=== PATIENT | female | born 1955 | race Two or more races ===

== ENCOUNTER 2016-07-05 17:05 | Emergency (ER) | payer SELFPAY ==
--- NOTE | 2016-07-09 19:08 | ER ---
ADMIT: 07/05/2016 RM/LOC: ER [facility] MR#: [id number] [facility] [address] [place], [place] [id number] PAUL MARLEY Giancarlo [address] [place] [id number] Emergency Room Report SEX: F AGE: 61 : 1955 DATE: 07/05/2016 CHIEF COMPLAINT: Shortness of breath. HISTORY OF PRESENT ILLNESS: This is a 61-year-old, female, who presents with 7 days' duration of shortness of breath. She states this started out as an upper respiratory infection with some sore throat, sinus drainage. This has progressed into some body aches and sinus drainage. Admits to some fever, chills, chest pain, productive cough, dizziness, lightheadedness, nausea, vomiting, muscle aches, swollen glands, and headache. She was recently treated for bronchitis with antibiotics and prednisone. She has been seen a few times at Urgent Care, but currently treated for bronchitis. She does have a past history of cardiac disease, status post three cardiac stents. She has had a stroke in the past as well as hypertension. She is currently not taking any medications as she is not set up with a primary care provider at this point. She has no known drug allergies. She does smoke 1/4 pack per day; however, states she has not had a cigarette in 6 days now. COURSE IN THE EMERGENCY ROOM: The patient was seen and examined. She is in mild amount of distress. She is anxious. She is in no respiratory distress. She does have some wheezes bilaterally, some faint rhonchi in the right lung base greater than the left. No accessory muscle use. No decreased air movement. Heart rate is regular. No murmur, JVD, gallop, or chip. Abdomen is soft and nontender. No distention. Skin is warm and dry. She does have trace pedal edema. She is oriented, able to ambulate today. I did get some labs on her. Her white count is 6.4, hemoglobin 16.1, hematocrit 45.8, platelets 139. Chemistry is normal. Cardiac enzymes were negative. EKG; normal sinus rhythm without ST-T or Q wave abnormalities. Chest x-ray negative for any infiltrates or acute processes. She was given a dose of ADMIT: 07/05/2016 RM/LOC: [facility] MR#: [id number] [facility] [address] [place], [place] [id number] MARLEYJOSEPH CORNELIUSDevora Mondragon [address] [place] [address] Emergency Room Report SEX: F AGE: 61 : 1955 Levaquin 500 mg p.o. as well as prednisone 60 mg prior to discharge. She was given a breathing treatment. IMPRESSION: Chronic obstructive pulmonary disease exacerbation. DISPOSITION: The patient will be discharged with a script for Levaquin 500 mg p.o. x6 days as well as prednisone taper. She is to follow up with Dr. Brayden Pond to establish care. She does have some chronic comorbidities that require further management at this time given her cardiac history, hypertension, and smoking history. The patient's questions were sought and answered to the best of my ability and to the patient's satisfaction. Discharged in stable condition. JIM Casarez / Sage Angulo MD / sue JOB #: [id number] CC: Oniel Potter MD, Attending Physician Arash Cardoza MD, Family Physician
== END 2016-07-05 21:19 | disposition home or self-care (01) ==
LOC: ER 17:05
DX: J44.1 Chronic obstructive pulmonary disease with (acute) exacerbation (principal); F32.9 Major depressive disorder, single episode, unspecified; I11.9 Hypertensive heart disease without heart failure; F17.210 Nicotine dependence, cigarettes, uncomplicated; Z86.73 Personal history of transient ischemic attack (TIA), and cerebral infarction without residual deficits; Z95.5 Presence of coronary angioplasty implant and graft

== ENCOUNTER → 2016-07-09 | Outpatient (CLI) | payer OTHER | END | disposition home or self-care (01) | LOC: PTH.S 13:00 | DX: M06.9 Rheumatoid arthritis, unspecified (principal) ==